=== PATIENT | female | born 1955 | race Caucasian/White ===

== ENCOUNTER 2018-07-19 01:42 | Outpatient (CLI) | payer MEDICAID, SELFPAY ==
[2018-07-19 07:48] LABS: Absolute Basophil Count 0.03 k/cumm (0.0-0.2); Absolute Eosinophil Count 0.25 k/cumm (0.0-0.7); Absolute Lymphocyte Count 1.98 k/cumm (1.2-3.4); Absolute Monocyte Count 0.49 k/cumm (0.11-0.7); Absolute Neutrophil Count 1.83 k/cumm (1.2-6.7); Basophils % 0.7; Eosinophils % 5.5; HCT 41.9 % (36.0-46.0); HGB 13.8 g/dL (12.0-15.5); Lymphocytes % 43.2; Mean Corp. HGB Concentration 32.9 g/dL (32.0-36.0); Mean Corpuscular Hemoglobin 29.7 pg (27.0-33.0); Mean Corpuscular Volume 90.1 fL (80-95); Mean Platelet Volume 9.9 fL (8.0-11.0); Monocytes % 10.7; Neutrophils % 39.9; Platelet Count 189 x1000/uL (130-400); RBC 4.65 m/cumm (4.00-5.20); White Blood Cell Count 4.58 k/cumm (4.4-10.8)
[2018-07-19 07:53] LABS: Bilirubin Negative (Negative); Blood Negative (Negative); Clarity Clear; Glucose Negative (Negative); Ketones Negative (Negative); Leukocyte Esterase Negative (Negative); Nitrite Negative (Negative); Specific Gravity 1.015 (1.005-1.025); Urobilinogen 0.2 EU/dL (Up TO 0.2); pH 8.5 (5-8)
[2018-07-19 08:07] LABS: Hemoglobin A1C 5.6 % (4.5-6.2)
[2018-07-19 08:31] LABS: ALT 22 U/L (12-78); AST 23 U/L (15-37); Albumin 3.7 g/dL (3.4-5.0); Alkaline Phosphatase 70 U/L (46-116); Anion Gap 6.8 mmol/L (3-11); BUN 15 mg/dL (7-18); Bilirubin, Total 2.1 mg/dL (0.2-1.0); CO2 30.2 mmol/L (21.0-32.0); CREATININE 0.74 mg/dL (0.55-1.02); Calcium 8.9 mg/dL (8.5-10.1); Chloride 102 mmol/L (98-107); Cholesterol 209 mg/dL (50-200); Ferritin 106 ng/mL (8-388); Glucose 81 mg/dL (70-100); HDL Cholesterol 96 mg/dL (40-60); LDL CHOLESTEROL 103 mg/dL (<100); Potassium 3.8 mmol/L (3.5-5.1); Sodium 139 mmol/L (136-145); Total Protein 7.2 g/dL (6.4-8.2); Triglyceride 38 mg/dL (30-150)
[2018-07-19 08:51] LABS: FREE T4 1.13 ng/dL (0.76-1.46)
[2018-07-20 12:18] LABS: ANA Interpretation Positive (NEGAT); ANA Titer Pattern 1:160 Speckled
== END 2018-07-19 02:02 ==
PROVIDERS: PCP Family Medicine; Visit Provider Naturopath
DX: E07.9 Disorder of thyroid, unspecified (principal); R53.83 Other fatigue; D50.9 Iron deficiency anemia, unspecified; D53.9 Nutritional anemia, unspecified; E80.7 Disorder of bilirubin metabolism, unspecified; Z13.1 Encounter for screening for diabetes mellitus; Z13.220 Encounter for screening for lipoid disorders; L20.9 Atopic dermatitis, unspecified; Z00.00 Encounter for general adult medical examination without abnormal findings
CPT/HCPCS: 36415; 80053; 80061; 83721; 81003; 82728; 83036; 84439; 84443; 85025; 86038

== ENCOUNTER 2019-03-19 23:38 | Emergency (ER) | payer MEDICARE, SELFPAY ==
[2019-03-19 23:47] VITALS: BP 137/85; PULSE 84; RESP 16; TEMP 36.5; O2SAT 99
--- NOTE | 2019-03-19 23:58 | DI.RAD_ITS ---
EXAM: XR SOFT TISSUE NECK INDICATION: sore throat, eval for mass/swelling. COMPARISON: No exams were available for comparison TECHNIQUE: 2D digital imaging was performed. FINDINGS: The airway appears unremarkable. No abnormal narrowing is noted. There is a normal epiglottis. No prevertebral soft tissue swelling is present. Moderate degenerative changes are seen in the cervical spine. IMPRESSION: Normal soft tissue neck.
--- NOTE | 2019-03-20 | ED.GENADUL_ITS ---
Discharge Plan Disposition Patient Disposition: HOME Condition: Good Discharge Details Chief Complaint: Sorethroat Clinical Impression: Acute sore throat, Pharyngitis Primary Care Provider: Ladan Fuentes ED Provider: Slick Shirley Home Meds and New Rx's Prescriptions: No Action evening primrose oil [Evening Corcoran] 500 MG capsule 500 mg PO RF: 0 folic acid 0.4 MG tablet 0.4 mg PO DAILY RF: 0 ascorbic acid (vitamin C) [Vitamin C] 500 MG tablet 500 mg PO DAILY RF: 0 coenzyme Q10 [Co Q-10] 100 MG capsule 100 mg PO RF: 0 magnesium oxide 500 MG capsule 500 mg PO DAILY RF: 0 Discharge Instructions Instructions: Pharyngitis (ED) Additional Instructions: At this time your pharyngitis likely secondary to a viral infection. My recommendation would be 2 tablespoons of honey every 6 hours. It is important to help get the inflammation down and this is best achieved by taking Tylenol and Motrin. You can take 600 mg of Motrin/ibuprofen every 6 hours or 500 mg of Tylenol/acetaminophen every 6 hours. I would recommend Motrin/ibuprofen. Please drink plenty of water. If you notice any worsening of your symptoms, or any new symptoms such as difficulty drinking swallowing or eating, vomiting, di arrhea, fever, chills, shortness of breath, chest pain, numbness, weakness, or fainting , please return immediately to the emergency department for reevaluation. Please follow up with your primary care provider as soon as possible for reassessment and reevaluation. As always, it was a pleasure participating in your medical care today. Referrals: Ladan Fuentes [Primary Care Provider] - Medical Decision Making This is a pleasant 63-year-old female who presents for evaluation of a sore throat for the last week, slightly worsened over the last 2 days. She has no choking, no difficulty swallowing, but does have some pain with swallowing. She denies any chest pain, cough, fever, chills, headache or neck pain. Exam demonstrates no clinical evidence of meningitis, no evidence of airway obstruction, no signs of large paratracheal mass. She is able to swallow well. Minimal cobblestoning of posterior oropharynx, tonsils are normal. Strep test is negative. Signs and symptoms appear clinically consistent with viral upper respiratory infection with mild associated pharyngitis. Patient is very concerned about her symptoms though. Clinically she shows no evidence of toxic appearance, or severe abnormality. Out of an abundance of precaution we will get a soft tissue neck x-ray to evaluate for any paratracheal mass or swelling. We did discuss risks and benefits of medication, and at this time we will give Decadron for pain and swelling, as well as viscous lidocaine. 1:07 AM The patient's soft tissue next x-ray shows no evidence of acute soft tissue swelling or abnormality. Mild cervical degeneration is noted. No other significant abnormalities. The patient is still able to eat and drink well and shows no signs of airway compromise, or significant toxic appearance or abnormality. Signs and symptoms are inconsistent at this time with tracheitis, retropharyngeal abscess or other abnormality. Recommend continued NSAIDs, she has been given a dose of Decadron already, recommend honey at home as well. Discussed red flags which to return. I have extensively reviewed the treatment plan and discharge instructions with the patient and their family. I have addressed all patient concerns at this time. The patient and family was made aware of what symptoms to monitor for that would warrant a return to the emergency department. Discussed the plan with the patient and family, they demonstrate verbal understanding and agreement with our assessment and plan at this time. FINDINGS: Airway: Normal. No abnormal narrowing. Soft tissues: Normal. Normal epiglottis. Bones/joints: There is moderate degenerative disc disease primarily at C5-6 and to a lesser extent at C6-7. IMPRESSION: Normal neck for soft tissues with cervical degenerative disc disease incidentally noted. Thank you for allowing us to participate in the care of your patient. Dictated and Authenticated by: Johnny Garibay MD 03/20/2019 1:06 AM Eastern Time ([place] & [place]) HPI General Date/Time Provider Initiated Documentation: 03/19/19 23:48 . HPI Narrative: This is a 63-year-old female with no significant past medical history who presents today for evaluation of sore throat. Patient states that for the last week she has had mild sore throat, however over the last day or 2 it is notably worsened. She states that it is notably painful to swallow. She is still able to swallow denies any choking. She denies any fever or chills, but does admit to mild congestion runny nose. She denies any cough. She denies any headache or neck pain. She denies any pain with movement of her neck. She still does have her tonsils. She has not taken any medications for this aside for 2 Benadryl earlier today. She denies any other complaints. She denies any other modifying factors. Related Data Home Medications Medication Instructions Recorded Confirmed ascorbic acid (vitamin C) [Vitamin 500 mg PO DAILY 05/30/15 03/20/19 C] coenzyme Q10 [Co Q-10] 100 mg PO 05/30/15 evening primrose oil [Evening 500 mg PO 05/30/15 Corcoran] folic acid 0.4 mg PO DAILY 05/30/15 03/20/19 magnesium oxide 500 mg PO DAILY 05/30/15 03/20/19 Allergies Allergy/AdvReac Type Severity Reaction Status Date / Time No Known Allergies Allergy Unverified 05/30/15 08:07 General Stated Complaint: Sorethroat KENDAL: 4 Review of Systems All systems reviewed & are unremarkable except as noted in HPI and below PFSH Medical History Infertility, 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 Family History Brother , lung CA Personal history of malignant neoplasm Brother No problems noted. Brother No problems noted. Social History Smoking/Tobacco Use Status: Never Alcohol Intake: never Drug use: Never Substance use type: does not use Do you feel safe at home: Yes Do you feel safe in your relationship?: Yes Exam Narrative Exam Narrative: 1.Const: Well-nourished, Well-developed, appearing stated age 2.Eyes: PERRL, no conjunctival injection, and symmetrical lids. 3.ENT: Atraumatic external nose and ears. Moist MM. Neck: Symmetric, trachea midline, No thyromegaly. Minimal erythema and cobblestoning in the posterior oropharynx. No tonsillar exudates, no tonsillar enlargement. Palpation of the trachea itself elicits no tactile evidence of mass, swelling or abnormality. No evidence of Ludwigs angina. Patient demonstrates good movement of cervical neck. There is no nuchal rigidity, no nuchal tenderness. Patient is able to flex the neck without any difficulty or significant pain. Negative Kernig's and Brudzinski sign. Right and left tympanic membranes are cr, pearly with no other abnormalities. 4.CVS: +S1/S2, No murmurs or gallops. Peripheral pulses 2+ and equal in all ext remities. Brisk capillary refill in all extremities. 5.RESP: Unlabored respiratory effort. Clear to auscultation bilaterally. No wheezes rales or rhonchi 6.GI: Soft, Nontender/Nondistended, No hepatosplenomegaly. No guarding or rebound. 7.MSK: Normocephalic/Atraumatic, Extremities w/o deformity or ttp No cyanosis or clubbing, Normal movement of all extremities 8.Skin: Warm, Dry. No rashes or lesions. 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 Sensation grossly intact, no focal neurologic deficits. 10.Psych: (AAO) x3. Appropriate mood and affect Course Vital Signs Vital signs: Vital Signs Temperature 36.5 C 03/19/19 23:47 Pulse 84 03/19/19 23:47 Respiratory Rate 16 03/19/19 23:47 Blood Pressure 137/85 03/19/19 23:47 Pulse Oximetry 99 03/19/19 23:47 Temperature 36.5 C 03/19/19 23:47 Temperature Source Skin 03/19/19 23:47 Pulse 84 03/19/19 23:47 Respiratory Rate 16 03/19/19 23:47 Blood Pressure 137/85 03/19/19 23:47 Pulse Oximetry 99 03/19/19 23:47 Lab/Test Results Lab/Test Results: 03/19/19 23:58 Tonsil - Not Specified Streptococcus Screen (JUAN JOSE) - Pending POC Strep Test-[facility](Rapid) Start: 03/19/19 23:58 Freq: .Rapid Strep Test Status: Active Protocol: Document 03/19/19 23:58 SF (Rec: 03/19/19 23:58 [id number]) Strep test-[facility]RA(Rapid)-POC POC-Strep test-HOMAR (Rapid) Negative POC-Strep test-[facility]OMAR (Rapid) Negative
[2019-03-20] MEDS: Dexamethasone 4 MG TAB 12 MG PO (00:08)
--- NOTE | 2019-03-20 01:06 | DI.VRAD_ITS ---
PROCEDURE INFORMATION: Exam: XR Soft Tissue Neck Exam date and time: 03/19/2019 12:00 AM Clinical history: 63 years old, female; Throat pain; Patient HX: Sore throat; Additional info: Eval for mass/swelling TECHNIQUE: Imaging protocol: XR of the soft tissues of the neck. COMPARISON: No relevant prior studies available. FINDINGS: Airway: Normal. No abnormal narrowing. Soft tissues: Normal. Normal epiglottis. Bones/joints: There is moderate degenerative disc disease primarily at C5-6 and to a lesser extent at C6-7. IMPRESSION: Normal neck for soft tissues with cervical degenerative disc disease incidentally noted. Dictated and Authenticated by: Johnny Garibay MD. Ordering:PALOMA Kruger MD
[2019-03-20 01:13] VITALS: BP 137/85; PULSE 84; RESP 16; O2SAT 99
== END 2019-03-20 01:10 | disposition home or self-care (01) ==
PROVIDERS: Emergency Provider Student in an Organized Health Care Education/Training Program; PCP Nurse Practitioner; Referring Provider Nurse Practitioner Family
DX: J02.9 Acute pharyngitis, unspecified (principal)
CPT/HCPCS: 87880; 99283; 70360; 87081; 99282; J8540

== ENCOUNTER 2019-05-03 01:13 | Outpatient (CLI) | payer MEDICARE, SELFPAY ==
--- NOTE | 2019-05-03 16:40 | DI.DEXA_ITS ---
EXAM: XR DEXA BONE DENSITY W/WO CARLYN INDICATION: Z78.0 ASYMPTOMATIC MENOPAUSAL STATE. COMPARISON: No exams were available for comparison FINDINGS: Evaluation of the left hip shows a total T-score of -1.6 and a Z-score of -0.3. This is consistent w ith osteopenia and an increased fracture risk. Evaluation of the lumbar spine shows a total T-score of -0.6 and a Z-score 1.2. This is within daniele l limits. IMPRESSION: No evidence of osteoporosis.
== END 2019-05-03 01:33 ==
PROVIDERS: PCP Nurse Practitioner; Visit Provider Nurse Practitioner Family
DX: M85.88 Other specified disorders of bone density and structure, other site (principal); Z78.0 Asymptomatic menopausal state
CPT/HCPCS: 77080

== ENCOUNTER 2019-06-10 07:27 | Outpatient (CLI) | payer MEDICARE, SELFPAY ==
[2019-06-10 08:05] LABS: Kit/Specimen SENT
== END 2019-06-10 07:47 ==
PROVIDERS: PCP Nurse Practitioner; Visit Provider Nurse Practitioner Family
DX: R53.83 Other fatigue (principal); L20.9 Atopic dermatitis, unspecified; E56.8 Deficiency of other vitamins; E78.2 Mixed hyperlipidemia; Z78.0 Asymptomatic menopausal state
CPT/HCPCS: 36415

== ENCOUNTER 2019-12-15 01:36 | Outpatient (CLI) | payer MEDICARE, SELFPAY ==
[2019-12-15 13:27] LABS: Kit/Specimen SENT
== END 2019-12-15 01:56 ==
PROVIDERS: PCP Nurse Practitioner; Visit Provider Naturopath
DX: Z00.8 Encounter for other general examination (principal); R69 Illness, unspecified
CPT/HCPCS: 36415

== ENCOUNTER 2021-09-02 20:26 | Outpatient (REF) | payer MEDICARE, OTHER, SELFPAY ==
[2021-09-02 17:35] LABS: Anion Gap 7.7 mmol/L (3-11); BUN 14 mg/dL (7-18); CO2 29.3 mmol/L (21.0-32.0); CREATININE 0.7 mg/dL (0.55-1.02); Calcium 9.6 mg/dL (8.5-10.1); Chloride 103 mmol/L (98-107); Glucose 88 mg/dL (74-106); Magnesium 2.5 mg/dL (1.8-2.4); Potassium 4.4 mmol/L (3.5-5.1); Sodium 140 mmol/L (136-145)
== END 2021-09-02 20:27 | disposition home or self-care (01) ==
LOC: NCHCN 20:26
PROVIDERS: PCP Nurse Practitioner; Visit Provider Nurse Practitioner Family
DX: L40.9 Psoriasis, unspecified (principal); E83.42 Hypomagnesemia; Z13.1 Encounter for screening for diabetes mellitus
CPT/HCPCS: 80048; 82306; 83735

== ENCOUNTER 2024-06-06 04:27 | Outpatient (CLI) | payer SELFPAY ==
[2024-06-06 11:37] LABS: Kit/Specimen SENT
== END 2024-06-06 04:28 | disposition home or self-care (01) ==
LOC: LBO 04:27
DX: Z01.812 Encounter for preprocedural laboratory examination (principal)
CPT/HCPCS: 36415